=== PATIENT | female | born 1955 | race Caucasian/White ===

== ENCOUNTER → 2016-05-12 | Outpatient (CLI) | payer BC ==
--- NOTE | 2016-05-16 07:10 | MM ---
Reason for exam: screening (asymptomatic). Last mammogram was performed 2 years ago. History: Patient is postmenopausal. Family history of breast cancer in maternal cousin and breast cancer in mother at age 60. Benign left US cyst aspiration of the left breast, August 15, 2010. Benign excisional biopsy of the left breast, February 15, 2005. Benign ultrasound-guided cyst aspiration of the right breast, April 20, 1999. Cyst aspiration of the right breast. Physical Findings: A clinical breast exam by your physician is recommended on an annual basis and results should be correlated with mammographic findings. MG 3D Screening Mammo W/Cad Bilateral CC and MLO view(s) were taken. Prior study comparison: May 01, 2014, bilateral MG screening mammo w CAD. April 08, 2013, bilateral digital screening mammo w/CAD. The breast tissue is heterogeneously dense. This may lower the sensitivity of mammography. No significant changes when compared with prior studies. ASSESSMENT: Benign, BI-RAD 2 RECOMMENDATION: Routine screening mammogram of both breasts in 1 year.
== END | disposition home or self-care (01) ==
LOC: RADMAMWWP 14:19
PROVIDERS: ATTEND Family Medicine
DX: Z12.31 Encounter for screening mammogram for malignant neoplasm of breast (principal)
CPT/HCPCS: 77063; G0202

== ENCOUNTER → 2016-09-25 | Outpatient (CLI) | payer BC ==
[2016-09-25 11:32] LABS: ALT 63 U/L (9-52); AST 46 U/L (14-36); Alkaline Phosphatase 67 U/L (38-126); Anion Gap 13 mmol/L; Blood Urea Nitrogen 10 mg/dL (7-17); Calcium 9.2 mg/dL (8.4-10.2); Carbon Dioxide 27 mmol/L (22-30); Chloride 105 mmol/L (98-107); Cholesterol 126 mg/dL (<200); Glucose 139 mg/dL (74-99); HDL Cholesterol 40 mg/dL (40-60); Non-African American GFR(MDRD) >60 (>60 ml/min/1.73 sqM); Potassium 4.9 mmol/L (3.5-5.1); Sodium 145 mmol/L (137-145); Total Bilirubin 0.4 mg/dL (0.2-1.3); Total Protein 6.9 g/dL (6.3-8.2); Triglycerides 149 mg/dL (<150)
[2016-09-25 16:03] LABS: Urine Creatinine 143.4 mg/dL
== END | disposition home or self-care (01) ==
LOC: LABWHC1 10:58
PROVIDERS: ATTEND Internal Medicine Endocrinology, Diabetes & Metabolism
DX: E11.65 Type 2 diabetes mellitus with hyperglycemia (principal)
CPT/HCPCS: 36415; 80053; 80061; 82043; 82570

== ENCOUNTER → 2017-04-14 | Outpatient (CLI) | payer BC ==
[2017-04-14 07:58] LABS: ALT 64 U/L (9-52); AST 58 U/L (14-36); Albumin 4.4 g/dL (3.5-5.0); Alkaline Phosphatase 63 U/L (38-126); Anion Gap 12 mmol/L; Blood Urea Nitrogen 13 mg/dL (7-17); Calcium 10.1 mg/dL (8.4-10.2); Carbon Dioxide 28 mmol/L (22-30); Chloride 106 mmol/L (98-107); Cholesterol 153 mg/dL (<200); Glucose 115 mg/dL (74-99); HDL Cholesterol 47 mg/dL (40-60); LDL Cholesterol,Calculated 74 mg/dL (0-99); Potassium 4.9 mmol/L (3.5-5.1); Sodium 146 mmol/L (137-145); Total Bilirubin 0.3 mg/dL (0.2-1.3); Total Protein 7.3 g/dL (6.3-8.2); Triglycerides 159 mg/dL (<150)
[2017-04-14 12:40] LABS: Hemoglobin A1C 8.3 % (4.0-6.0)
== END | disposition home or self-care (01) ==
LOC: LABWHC1 07:12
PROVIDERS: ATTEND Internal Medicine Endocrinology, Diabetes & Metabolism
DX: E11.65 Type 2 diabetes mellitus with hyperglycemia (principal); E78.5 Hyperlipidemia, unspecified
CPT/HCPCS: 36415; 80053; 80061; 82043; 82570; 83036; 84443

== ENCOUNTER → 2017-10-09 | Outpatient (CLI) | payer BC ==
--- NOTE | 2017-10-09 08:22 | US ---
EXAMINATION TYPE: US abdomen complete DATE OF EXAM: 10/09/2017 COMPARISON: NONE CLINICAL HISTORY: R74.8 abnormal serum enzymes. Abnormal labs. No pain. EXAM MEASUREMENTS: Liver Length: 20.2 cm Gallbladder Wall: 0.2 cm CBD: 0.5 cm CHD: 0.6 cm Spleen: 12.0 cm Right Kidney: 11.8 x 5.6 x 5.4 cm Left Kidney: 10.6 x 4.6 x 4.7 cm Pancreas: Appears heterogenous. Main pancreatic duct= 1.1 mm. Liver: Increased attenuation, decreased visualization of vessels suggestive of fatty infiltrate. Fo allison sparing seen. Appears enlarged Gallbladder: wnl Evidence for sonographic Schofield's sign: neg CBD: wnl CHD: wnl Spleen: wnl Right Kidney: Cystic appearing lesion seen in renal sinus= 3.3 x 3.0 x 3.6 cm Left Kidney: wnl Upper IVC: wnl Abd Aorta: Portions not visualized due to overlying bowel gas The visualized liver is heterogeneously hyperechoic. No worrisome intrahepatic ductal dilatation is seen. Evaluation for focal masses is suboptimal due to the heterogeneity. The intrahepatic portion of the IVC and visualized abdominal aorta are within normal limits. There is no evidence of cholelithi asis. Common bile duct is unremarkable. The visualized portions of the pancreas are heterogeneous w ith poor definition from adjacent liver. Portions are obscured by overlying bowel gas. The spleen is unremarkable. Kidneys are symmetric and free of hydronephrosis. There is 3.3 x 3.6 cm thin-walled s imple appearing cyst centrally in the right kidney is slightly lobulated contour. IMPRESSION: Heterogeneous hyperechoic appearance of liver likely reflect product of diffuse fatty inf iltration, underlying hepatocellular disease is not excluded. Imaging guided random biopsy for tissue analysis can be performed if desired.
== END | disposition home or self-care (01) ==
LOC: RADUSWWP 06:46
PROVIDERS: ATTEND Family Medicine
DX: R74.8 Abnormal levels of other serum enzymes (principal)
CPT/HCPCS: 76700

== ENCOUNTER → 2017-10-29 | Outpatient (CLI) | payer BC ==
--- NOTE | 2017-10-31 12:02 | MM ---
Reason for exam: screening (asymptomatic). Last mammogram was performed 1 year and 6 months ago. History: Patient is postmenopausal. Family history of breast cancer in maternal cousin and breast cancer in mother at age 60. Benign left US cyst aspiration of the left breast, August 15, 2010. Benign excisional biopsy of the left breast, February 15, 2005. Benign ultrasound-guided cyst aspiration of the right breast, April 20, 1999. Cyst aspiration of the right breast. Physical Findings: A clinical breast exam by your physician is recommended on an annual basis and results should be correlated with mammographic findings. MG 3D Screening Mammo W/Cad Bilateral CC and MLO view(s) were taken. Prior study comparison: May 12, 2016, bilateral MG 3d screening mammo w/cad. May 01, 2014, bilateral MG screening mammo w CAD. The breast tissue is heterogeneously dense. This may lower the sensitivity of mammography. Diffuse round and punctate calcifications redemonstrated. No significant changes when compared with prior studies. ASSESSMENT: Benign, BI-RAD 2 RECOMMENDATION: Routine screening mammogram of both breasts in 1 year.
== END | disposition home or self-care (01) ==
LOC: RADMAMWWP 09:11
PROVIDERS: ATTEND Family Medicine
DX: Z12.31 Encounter for screening mammogram for malignant neoplasm of breast (principal)
CPT/HCPCS: 77063; 77067

== ENCOUNTER → 2018-02-25 | Outpatient (CLI) | payer SELFPAY ==
[2018-02-25 16:43] LABS: ALT 63 U/L (8-44); AST 66 U/L (13-35); Albumin/Globulin Ratio 2.05 (1.20-2.10); Alkaline Phosphatase 84 U/L (41-126); Calcium 9.7 mg/dL (8.7-10.3); Carbon Dioxide 28.1 mmol/L (21.6-31.8); Chloride 105 mmol/L (96-109); Cholesterol 204 mg/dL (0-200); Globulin 2.2 g/dL (2.1-3.7); Glucose 147 mg/dL (70-110); Potassium 4.6 mmol/L (3.5-5.5); Sodium 142 mmol/L (135-145); Total Bilirubin 0.3 mg/dL (0.2-1.2); Total Protein 6.7 g/dL (6.2-8.2)
[2018-02-25 17:13] LABS: Hemoglobin A1C 7.7 % (4.0-6.0)
== END | disposition home or self-care (01) ==
LOC: LABWHC1 10:43
PROVIDERS: ATTEND Internal Medicine Endocrinology, Diabetes & Metabolism
DX: E11.65 Type 2 diabetes mellitus with hyperglycemia (principal)
CPT/HCPCS: 36415; 80053; 80061; 82043; 82570; 83036; 83721

== ENCOUNTER → 2018-06-13 | Outpatient (CLI) | payer BC ==
[2018-06-13 18:03] LABS: Albumin 4.5 g/dL (3.80-4.90); Albumin/Globulin Ratio 2.14 (1.60-3.17); Anion Gap 11.3 mmol/L (4.00-12.00); Calcium 9.2 mg/dL (8.7-10.3); Carbon Dioxide 23.7 mmol/L (21.6-31.8); Globulin 2.1 g/dL (1.6-3.3); Potassium 4.4 mmol/L (3.5-5.5); Total Bilirubin 0.5 mg/dL (0.3-1.2); Total Protein 6.6 g/dL (6.2-8.2)
[2018-06-13 20:21] LABS: Hemoglobin A1C 9.5 % (4.0-6.0)
== END | disposition home or self-care (01) ==
LOC: LABWHC1 10:58
PROVIDERS: ATTEND Internal Medicine Endocrinology, Diabetes & Metabolism
DX: E11.65 Type 2 diabetes mellitus with hyperglycemia (principal)
CPT/HCPCS: 36415; 80053; 80061; 82043; 82570; 83036; 84443

== ENCOUNTER → 2018-12-31 | Outpatient (CLI) | payer BC ==
--- NOTE | 2018-12-31 18:09 | BD ---
EXAMINATION TYPE: Axial Bone Density DATE OF EXAM: 12/31/2018 COMPARISON: NONE CLINICAL HISTORY: Height: 63 IN Weight: 197 LBS RISK FACTORS HISTORY OF: Active: YES Diet low in dairy products/other sources of calcium: YES Postmenopausal woman: AGE 55 MEDICATIONS: Thyroid Medications: YES Which medication: Synthroid How Lon+ YEARS Additional Medications: MULTI VIT, METOPROLOL, METFORMIN, SYNTHROID, ENALAPRIL, EZETIMIBE, GLIPIZIDE, TRULICITY PEN, PIOGLITAZONE,ATORVASTATIN,FISH OIL, BABY ASPIRIN, MAGNESIUM EXAM MEASUREMENTS: Bone mineral densitometry was performed using the [employer]dir System. Bone mineral density as measured about the Lumbar spine is: ----- L1-L4(G/cm2): 1.384 T Score Values are as follows: ----- L2: 1.5 ----- L3: 2.6 ----- L4: 1.6 ----- L1-L4: 1.7 Bone mineral density BASELINE Bone mineral density about the R hip (g/cm2): 0.999 Bone mineral density about the L hip (g/cm2): 1.032 T Score values are as follows: -----R Neck: -0.3 -----L Neck: 0.0 -----R Total: 1.1 -----L Total: 1.0 Bone mineral density BASELINE IMPRESSION: Normal (Values between +1 and -1 indicate normal bone mass). Consider repeating this study in 5 year s or sooner if there is some new clinical indication. NOTE: T-SCORE=SD OF THE YOUNG ADULT MEAN.
--- NOTE | 2019-01-01 11:46 | MM ---
Reason for exam: screening (asymptomatic). Last mammogram was performed 1 year and 2 months ago. History: Patient is postmenopausal. Family history of breast cancer in maternal cousin and breast cancer in mother at age 60. Benign left US cyst aspiration of the left breast, August 15, 2010. Benign excisional biopsy of the left breast, February 15, 2005. Benign ultrasound- guided cyst aspiration of the right breast, April 20, 1999. Cyst aspiration of the right breast. Physical Findings: A clinical breast exam by your physician is recommended on an annual basis and results should be correlated with mammographic findings. MG 3D Screening Mammo W/Cad Bilateral CC and MLO view(s) were taken. Prior study comparison: October 29, 2017, bilateral MG 3d screening mammo w/cad. May 12, 2016, bilateral MG 3d screening mammo w/cad. The breast tissue is heterogeneously dense. This may lower the sensitivity of mammography. There are benign appearing round calcifications bilaterally 6cm from nipple. Asymmetric breast tissue right medial stable from 2017 mammogram. Focal asymmetry 14mm middle depth upper aspect left MLO 45/74, slight outer aspect CC 42/78. ASSESSMENT: Incomplete: need additional imaging evaluation, BI-RAD 0 RECOMMENDATION: Special view mammogram of the left breast. If lesion persists on supplemental views, image directed ultrasound is recommended. [facility] will attempt to contact patient to return for supplemental views and ultrasound if indicated. MARILIN
== END | disposition home or self-care (01) ==
LOC: RADMAMWWP 07:49
PROVIDERS: ATTEND Family Medicine
DX: Z12.31 Encounter for screening mammogram for malignant neoplasm of breast (principal); Z78.0 Asymptomatic menopausal state
CPT/HCPCS: 77063; 77067; 77080

== ENCOUNTER → 2019-01-09 | Outpatient (CLI) | payer BC ==
--- NOTE | 2019-01-10 13:27 | MM ---
Reason for exam: additional evaluation requested from abnormal screening. Last mammogram was performed less than 1 month ago. History: Patient is postmenopausal. Family history of breast cancer in maternal cousin and breast cancer in mother at age 60. Benign left US cyst aspiration of the left breast, August 15, 2010. Benign excisional biopsy of the left breast, February 15, 2005. Benign ultrasound-guided cyst aspiration of the right breast, April 20, 1999. Cyst aspiration of the right breast. Physical Findings: Nurse Summary: 1cm nodule in the left breast at 10 o'clock (nurse mj). MG 3D Work Up W/Cad LT Spot compression CC, spot compression MLO, and LM view(s) were taken of the left breast. Prior study comparison: October 29, 2017, bilateral MG 3d screening mammo w/cad. May 12, 2016, bilateral MG 3d screening mammo w/cad. The breast tissue is heterogeneously dense. This may lower the sensitivity of mammography. No distinct lesion persits. These results were verbally communicated with the patient and result sheet given to the patient on 01/09/19. ASSESSMENT: Incomplete: need additional imaging evaluation, BI-RAD 0 RECOMMENDATION: Ultrasound of the left breast.
--- NOTE | 2019-01-10 13:43 | USB ---
Reason for exam: additional evaluation requested from abnormal screening. History: Patient is postmenopausal. Family history of breast cancer in maternal cousin and breast cancer in mother at age 60. Benign left US cyst aspiration of the left breast, August 15, 2010. Benign excisional biopsy of the left breast, February 15, 2005. Benign ultrasound-guided cyst aspiration of the right breast, April 20, 1999. Cyst aspiration of the right breast. US Breast Workup Limited LT Left limited breast ultrasound including focal area of concern, retroareolar and axilla demonstrates a 0.6 x 0.2 x 0.5cm lesion too small to characterize at 10 o'clock and a 0.3 x 0.2 x 0.4cm lesion too small to characterize at 10 o'clock. Overall fibrocystic change. These results were verbally communicated with the patient and result sheet given to the patient on 01/09/19. ASSESSMENT: Probably benign, BI-RAD 3 RECOMMENDATION: Follow-up diagnostic mammogram and ultrasound of the left breast in 6 months.
== END | disposition home or self-care (01) ==
LOC: RADMAMWWP 14:54
PROVIDERS: ATTEND Family Medicine
DX: R92.8 Other abnormal and inconclusive findings on diagnostic imaging of breast (principal)
CPT/HCPCS: 77061; 77065

== ENCOUNTER → 2019-01-15 | Outpatient (CLI) | payer BC ==
[2019-01-15 16:20] LABS: African American GFR (CKD) 90.3 (60.0-200.0); Albumin 4.4 g/dL (3.80-4.90); Albumin/Globulin Ratio 2.44 (1.60-3.17); Anion Gap 7.8 mmol/L (4.00-12.00); BUN/Creat Ratio 17.5 Ratio (12.00-20.00); Calcium 9.7 mg/dL (8.7-10.3); Carbon Dioxide 26.2 mmol/L (21.6-31.8); Chol/HDL Ratio 2.75; Globulin 1.8 g/dL (1.6-3.3); LDL Cholesterol,Calculated 36.4 mg/dL (0.0-131.0); Potassium 4.8 mmol/L (3.5-5.5); Total Bilirubin 0.4 mg/dL (0.3-1.2); Total Protein 6.2 g/dL (6.2-8.2); VLDL Calculation 26.6 mg/dL (5.00-40.00)
[2019-01-15 17:42] LABS: Hemoglobin A1C 6.4 % (4.0-6.0)
== END | disposition home or self-care (01) ==
LOC: LABWHC1 09:22
PROVIDERS: ATTEND Internal Medicine Endocrinology, Diabetes & Metabolism
DX: E11.65 Type 2 diabetes mellitus with hyperglycemia (principal)
CPT/HCPCS: 36415; 80053; 80061; 82043; 82570; 83036; 84443

== ENCOUNTER → 2019-04-29 | Outpatient (CLI) | payer BC ==
--- NOTE | 2019-04-29 10:45 | USB ---
Reason for exam: clinical finding. History: Patient is postmenopausal. Family history of breast cancer in maternal cousin and breast cancer in mother at age 60. Benign left US cyst aspiration of the left breast, August 15, 2010. Benign excisional biopsy of the left breast, February 15, 2005. Benign ultrasound-guided cyst aspiration of the right breast, April 20, 1999. Cyst aspiration of the right breast. Physical Findings: Nurse Summary: 1cm palpable lump left breast 10 o'clock (nurse mj). US Breast Limited LT Left limited breast ultrasound including focal area of concern, retroareolar and axilla demonstrates a 0.3 x 0.4 x 0.3cm oval, mixed, hypoechoic lesion at 9 o'clock well defined posterior wall, likely complicated cyst, a 0.5 x 0.3 x 0.3cm oval, cystic lesion at 10 o'clock prior 0.4 x 0.3 x 0.2cm, appears cystic on today's exam, a duct at 10 o'clock, a 0.4 x 0.4cm ova, complicated cystic lesion at 11 o'clock and adjacent 2mm cyst and a 2.1 x 2.8 x 1.6cm oval node at the axilla. These results were verbally communicated with the patient and result sheet given to the patient on 04/29/19. ASSESSMENT: Probably benign, BI-RAD 3 RECOMMENDATION: Ultrasound of the left breast in 3 months. (patient is due for a 6 month follow up ultrasound, 3 months from now)
== END | disposition home or self-care (01) ==
LOC: RADUSWWP 09:32
PROVIDERS: ATTEND Family Medicine
DX: R92.8 Other abnormal and inconclusive findings on diagnostic imaging of breast (principal)

== ENCOUNTER → 2019-09-12 | Outpatient (CLI) | payer MEDICARE ==
[2019-09-12 18:59] LABS: African American GFR (CKD) 89.7 (60.0-200.0); Albumin 4.6 g/dL (3.80-4.90); Albumin/Globulin Ratio 2.09 (1.60-3.17); Anion Gap 8.6 mmol/L (4.00-12.00); BUN/Creat Ratio 17.5 Ratio (12.00-20.00); Calcium 9.9 mg/dL (8.7-10.3); Carbon Dioxide 28.4 mmol/L (21.6-31.8); Chol/HDL Ratio 2.42; Globulin 2.2 g/dL (1.6-3.3); LDL Cholesterol,Calculated 29.6 mg/dL (0.0-131.0); Non-African American GFR(CKD) 77.4 (60.0-200.0); Total Bilirubin 0.6 mg/dL (0.2-1.2); Total Protein 6.8 g/dL (6.2-8.2); VLDL Calculation 24.4 mg/dL (5.00-40.00)
[2019-09-12 19:53] LABS: Hemoglobin A1C 6.9 % (4.0-6.0)
== END | disposition home or self-care (01) ==
LOC: LABWHC1 10:39
PROVIDERS: ATTEND Internal Medicine Endocrinology, Diabetes & Metabolism
DX: E11.65 Type 2 diabetes mellitus with hyperglycemia (principal)
CPT/HCPCS: 36415; 80053; 80061; 82043; 82570; 83036; 84443

== ENCOUNTER → 2019-10-01 | Outpatient (CLI) | payer MEDICARE ==
--- NOTE | 2019-10-01 11:49 | MM ---
Reason for exam: follow-up at short interval from prior study. Last mammogram was performed 9 months ago. History: Patient is postmenopausal. Family history of breast cancer in maternal cousin and breast cancer in mother at age 60. Benign left US cyst aspiration of the left breast, August 15, 2010. Benign excisional biopsy of the left breast, February 15, 2005. Benign ultrasound-guided cyst aspiration of the right breast, April 20, 1999. Cyst aspiration of the right breast. Physical Findings: Nurse did not find any significant physical abnormalities on exam. MG 3D Diag Mammo W/Cad RICHARD Bilateral CC and MLO view(s) were taken. XCCL view(s) were taken of the right breast. Prior study comparison: January 09, 2019, left breast MG 3d work up w/cad LT. December 31, 2018, bilateral MG 3d screening mammo w/cad. The breast tissue is heterogeneously dense. This may lower the sensitivity of mammography. Stable benign calcifications. Focal asymmetry upper outer left breast 7.3cm from nipple. These results were verbally communicated with the patient and result sheet given to the patient on 10/01/19. ASSESSMENT: Incomplete: need additional imaging evaluation, BI-RAD 0 RECOMMENDATION: Ultrasound of the left breast. Manage patient on a clinical basis.
--- NOTE | 2019-10-01 11:52 | USB ---
Reason for exam: additional evaluation requested from abnormal screening. History: Patient is postmenopausal. Family history of breast cancer in maternal cousin and breast cancer in mother at age 60. Benign left US cyst aspiration of the left breast, August 15, 2010. Benign excisional biopsy of the left breast, February 15, 2005. Benign ultrasound-guided cyst aspiration of the right breast, April 20, 1999. Cyst aspiration of the right breast. US Breast LT Left complete breast ultrasound includes all four quadrants, the retroareolar region and axilla. Finding demonstrates a 4 x 3 x 3mm oval, cystic lesion at 12 o'clock, a 5 x 3 x 5mm cystic cluster at 2 o'clock, a 11 x 4 x 6mm solid, hypoechoic lesion at 4 o'clock for which a biopsy is recommended, a duct with debris at 5 o'clock, a 3 x 4 x 4mm cystic cluster at 6 o'clock and a 19 x 7 x 13mm irregular, mixed, hypoechoic lesion at 7 o'clock for which a biopsy is recommended. These results were verbally communicated with the patient and result sheet given to the patient on 10/01/19. ASSESSMENT: Suspicious, BI-RAD 4 RECOMMENDATION: Ultrasound core biopsy of the left breast. (x 2) Called Dr. Calderon's office with mammographic findings and has scheduled an appointment for the patient for 10/14/19 at 10:[address] Quinonez. PRELIMINARY REPORT CALLED AND FAXED TO DR. QUINONEZ ON 10/01/19.
== END | disposition home or self-care (01) ==
LOC: RADMAMWWP 08:13
PROVIDERS: ATTEND Family Medicine
DX: R92.8 Other abnormal and inconclusive findings on diagnostic imaging of breast (principal)
CPT/HCPCS: 77066; 76641; G0279; 77062

== ENCOUNTER → 2019-10-23 | Day surgery (SDC) | payer MEDICARE ==
[2019-10-23 12:10] VITALS: RESP 18; TEMP 98.5
[2019-10-23 13:58] VITALS: BP 123/73; PULSE 82
--- NOTE | 2019-10-23 14:14 | USB ---
EXAMINATION TYPE: US biopsy breast VAD LT DATE OF EXAM: 10/23/2019 CLINICAL HISTORY: R92.8 abn mammo. TECHNIQUE: Ultrasound guided core biopsy of left breast. COMPARISON: 10/01/2019 FINDINGS: The procedure of ultrasound guided core biopsy was explained to the patient. Benefits, alt ernatives, and risks were discussed. An informed consent was then obtained. The patient was placed in supine positioning for imaging and for the procedure. The overlying skin w as prepped and draped in usual sterile fashion. Lidocaine buffered with bicarbonate was used as anes thetic into the skin and subcutaneous tissue up to area of concern in the 7:00 position of the left b reast. A ismael was made with surgical scalpel. Under ultrasound guidance, a 12-gauge vacuum assisted biopsy gun device was used to obtain [address]. Following this, a biopsy clip was left in lesion. The 4:00 lesion could not be duplicated on today's exam and therefore cannot be biopsied. The patient tolerated the procedure well without any immediate complication. The patient was kept in the radiology department for short stay after the procedure and then discharged home in stable condi tion. IMPRESSION: Successful, uncomplicated ultrasound guided core biopsy of area of concern in the left br east, full pathology results to follow. See above.
--- NOTE | 2019-10-23 14:17 | MM ---
Reason for exam: additional evaluation requested from abnormal screening. Last mammogram was performed 1 month ago. History: Patient is postmenopausal. Family history of breast cancer in maternal cousin and breast cancer in mother at age 60. Benign left US cyst aspiration of the left breast, August 15, 2010. Benign excisional biopsy of the left breast, February 15, 2005. Benign ultrasound-guided cyst aspiration of the right breast, April 20, 1999. Cyst aspiration of the right breast. MG Diagnostic Mammo LT Wo CAD CC and LM view(s) were taken of the left breast. Prior study comparison: October 01, 2019, bilateral MG 3d diag mammo w/cad RICHARD. January 09, 2019, left breast MG 3d work up w/cad LT. ASSESSMENT: Post procedure mammogram for marker placement RECOMMENDATION: Ultrasound of the left breast in 6 months. PENDING PATHOLOGY RESULTS.
== END ==
LOC: RADUSWWP 11:51
PROVIDERS: ATTEND Surgery
DX: N60.12 Diffuse cystic mastopathy of left breast (principal); N62 Hypertrophy of breast; Z78.0 Asymptomatic menopausal state; Z80.3 Family history of malignant neoplasm of breast
CPT/HCPCS: 88305; 88342; 88341; 77065; 19083; A4648

== ENCOUNTER → 2020-04-20 | Outpatient (CLI) | payer MEDICARE ==
[2020-04-20 12:18] LABS: African American GFR (CKD) 89.7 (60.0-200.0); Albumin 4.5 g/dL (3.80-4.90); Albumin/Globulin Ratio 2.25 (1.60-3.17); Anion Gap 11.1 mmol/L (4.00-12.00); Calcium 9.5 mg/dL (8.7-10.3); Carbon Dioxide 27.9 mmol/L (21.6-31.8); Chol/HDL Ratio 2.73; LDL Cholesterol,Calculated 26.2 mg/dL (0.0-131.0); Non-African American GFR(CKD) 77.4 (60.0-200.0); Potassium 4.8 mmol/L (3.5-5.5); Total Bilirubin 0.6 mg/dL (0.2-1.2); Total Protein 6.5 g/dL (6.2-8.2); VLDL Calculation 30.8 mg/dL (5.00-40.00)
[2020-04-20 12:50] LABS: Urine Creatinine 180.2 mg/dL
[2020-04-20 14:20] LABS: Hemoglobin A1C 7.1 % (4.0-6.0)
== END | disposition home or self-care (01) ==
LOC: LABWHC1 07:15
PROVIDERS: ATTEND Internal Medicine Endocrinology, Diabetes & Metabolism
DX: E11.65 Type 2 diabetes mellitus with hyperglycemia (principal)
CPT/HCPCS: 36415; 80053; 80061; 82043; 82570; 83036; 84443

== ENCOUNTER → 2020-05-25 | Outpatient (CLI) | payer MEDICARE ==
--- NOTE | 2020-05-25 12:14 | MM ---
Reason for exam: additional evaluation requested from prior study. Last mammogram was performed 7 months ago. History: Patient is postmenopausal. Family history of breast cancer in maternal cousin and breast cancer in mother at age 60. Benign US biopsy breast VAD LT of the left breast, October 23, 2019. Benign left US cyst aspiration of the left breast, August 15, 2010. Benign excisional biopsy of the left breast, February 15, 2005. Benign ultrasound-guided cyst aspiration of the right breast, April 20, 1999. Cyst aspiration of the right breast. Physical Findings: Nurse did not find any significant physical abnormalities on exam. MG 3D Diag Mammo W/Cad RICHARD Bilateral CC and MLO view(s) were taken. Prior study comparison: October 01, 2019, bilateral MG 3d diag mammo w/cad RICHARD. December 31, 2018, bilateral MG 3d screening mammo w/cad. October 29, 2017, bilateral MG 3d screening mammo w/cad. The breast tissue is heterogeneously dense. This may lower the sensitivity of mammography. There are benign appearing round calcifications bilaterally. Previous mammotome biopsy in the left breast. There is no discrete abnormality. These results were verbally communicated with the patient and result sheet given to the patient on 05/25/20. ASSESSMENT: Benign, BI-RAD 2 RECOMMENDATION: Routine screening mammogram of both breasts in 1 year.
--- NOTE | 2020-05-25 12:17 | USB ---
Reason for exam: additional evaluation requested from prior study. History: Patient is postmenopausal. Family history of breast cancer in maternal cousin and breast cancer in mother at age 60. Benign US biopsy breast VAD LT of the left breast, October 23, 2019. Benign left US cyst aspiration of the left breast, August 15, 2010. Benign excisional biopsy of the left breast, February 15, 2005. Benign ultrasound-guided cyst aspiration of the right breast, April 20, 1999. Cyst aspiration of the right breast. US Breast Limited LT Left limited breast ultrasound including focal area of concern, retroareolar and axilla demonstrates a 1.1 x 1.8 x 1.6cm irregular, hypoechoic lesion at 7 o'clock, clip seen, stable, biopsied 10/23/19, a 0.6 x 1.1 x 0.5cm irregular, questionably cystic cluster at 9 o'clock, stable 04/29/19 ultrasound and a 1.7 x 1.6 x 1.1cm lymph node at the axilla, stable, slightly enlarged lymph node. Left breast scanned 6-9 o'clock. These results were verbally communicated with the patient and result sheet given to the patient on 05/25/20. ASSESSMENT: Benign, BI-RAD 2 RECOMMENDATION: Routine screening mammogram of both breasts in 1 year.
== END | disposition home or self-care (01) ==
LOC: RADMAMWWP 09:59
PROVIDERS: ATTEND Family Medicine
DX: R92.8 Other abnormal and inconclusive findings on diagnostic imaging of breast (principal); Z80.3 Family history of malignant neoplasm of breast
CPT/HCPCS: 77066; 76642; G0279; 77062

== ENCOUNTER → 2020-11-13 | Outpatient (CLI) | payer MEDICARE ==
[2020-11-13 10:42] LABS: HCT 36.5 % (34.0-46.0); HGB 11.8 gm/dL (11.4-16.0); Hypochromasia Slight; MCH 30.5 pg (25.0-35.0); MCHC 32.4 g/dL (31.0-37.0); Mean Platelet Volume 7.8; Platelet Count 219 k/uL (150-450); RBC 3.89 m/uL (3.80-5.40); RDW 14.6 % (11.5-15.5); WBC 7.8 k/uL (3.8-10.6)
[2020-11-13 10:51] LABS: African American GFR (CKD) >90 (>60 ml/min/1.73 sqM); Anion Gap 11 mmol/L; Blood Urea Nitrogen 17 mg/dL (7-17); Carbon Dioxide 26 mmol/L (22-30); Chloride 104 mmol/L (98-107); Non-African American GFR(CKD) 83 (>60 ml/min/1.73 sqM); Potassium 4.7 mmol/L (3.5-5.1); Sodium 141 mmol/L (137-145)
== END | disposition home or self-care (01) ==
LOC: LABPAT 09:52
PROVIDERS: ATTEND Internal Medicine Interventional Cardiology
DX: Z01.812 Encounter for preprocedural laboratory examination (principal); R94.39 Abnormal result of other cardiovascular function study
CPT/HCPCS: 36415; 80051; 82565; 84520; 85027

== ENCOUNTER → 2020-11-23 | Day surgery (SDC) | payer MEDICARE ==
[2020-11-17 15:57] VITALS: BMI 36.0
[~2020-11-23] MED LIST: ALPRAZolam 0.25 MG TAB PO PRN; ALPRAZolam 0.5 MG TAB PO PRN; ASPIRIN 325 MG TAB PO STA; HEPARIN SODIUM 1,000 UN/ML (10ML VL) IV ONE; HEPARIN SODIUM 1,000 UN/ML (10ML VL) ONE; HEPARIN SODIUM,PORCINE 10,000 UNIT in SODIUM CHLORIDE 0.9% 1,000 ML IRRIGATION PRN; HEPARIN SODIUM,PORCINE 2,500 UNIT in SODIUM CHLORIDE 0.9% 250 ML IRRIGATION PRN; IOPAMIDOL-370 100ML BTL INJ ONE; LIDOCAINE 1% INJ 10MG/ML (20 ML MDV) ONE; LIDOCAINE 1% INJ 10MG/ML (20 ML MDV) SQ ONE; NITROGLYCERIN SL TABS 0.4 MG TAB SUBLINGUAL PRN; SODIUM CHLORIDE 0.9% 1,000 ML IV SCH; SODIUM CHLORIDE 0.9% 1,000 ML in EMPTY BAG 1 BAG IV ONE; VERAPAMIL 2.5 MG/ML 2 ML AMP ONE
[2020-11-23 09:45] LABS: Glucose,Whole Blood 164 mg/dL (75-99)
[2020-11-23 09:55] VITALS: RESP 16; TEMP 97.8
[2020-11-23] MEDS: MIDAZOLAM 2 MG/2 ML VIAL IV ONE ×2 (10:38→10:49)
[2020-11-23] MEDS: VERAPAMIL SYRINGE (5 MG/10 ML) INTRAARTER ONE ×2 (10:42→10:58)
--- NOTE | 2020-11-23 11:29 | CC ---
CARDIAC CATHETERIZATION REPORT DATE OF SERVICE: 11/23/2020 PROCEDURE: Left heart catheterization and coronary angiography. PERFORMED BY: Dr. Chey Membreno. Moderate conscious sedation time was 20 minutes. Patient was administered Versed. Oxygen saturation, hemodynamics and EKG were monitored closely. CLINICAL INFORMATION: Mrs. Denice Gutiérrez is a 65-year-old lady with a known history of diabetes, hypertension, hyperlipidemia, who has been having nondescript chest tightness and an abnormal stress test with evidence of ischemia in the anterior wall. She was advised cardiac catheterization after due discussion regarding risks, benefits, and options. PROCEDURE NOTE: Under local anesthesia and strict aseptic precautions, a 6-Sinhala introducer was placed in the right radial artery. Using a 3.5 left and a 4.0 right Abner catheters, I performed coronary angiography and the same right catheter was used to check LV pressure but LV gram was not performed. The sheath was taken out and TR band applied as per protocol. The saturation of the fingers of the right hand of about 94%. There were no complications. CARDIAC CATHETERIZATION FINDINGS: The left foot ventricular end-diastolic pressure was 12-13 mmHg without any gradient across aortic valve. CORONARY ANGIOGRAPHY FINDINGS: RIGHT CORONARY ARTERY: Dominant vessel, tortuous. No significant disease distally. Bifurcates into a large PDA and PLV, both of which supply a fair amount of myocardium. No significant disease in the dominant RCA system. There is mild calcification noted. LEFT MAIN CORONARY ARTERY: Short, patent, disease-free vessel that bifurcates into LAD and circumflex. LEFT ANTERIOR DESCENDING CORONARY ARTERY: Good caliber vessel extends along the anterior wall, gives off a large diagonal by several small septal branches, runs all the way to the apex, has minor irregularities but no significant disease. LEFT POSTERIOR CIRCUMFLEX CORONARY ARTERY: Nondominant vessel, gives off a single obtuse marginal that subdivides into 3 branches, has minor irregularities. No significant disease. LEFT VENTRICULOGRAM: Was not performed. FINAL IMPRESSION: This patient has a right dominant system. Normal filling pressures. No gradient. No significant obstructive CAD. Stress test was probably a false positive one. RECOMMENDATIONS: Findings were discussed with the patient and family. Continued medical therapy with risk factor modification advised. Patient will be discharged later on today and I will see her in the office in about a week. MMODL / IJN: [id number] /
[2020-11-23 17:37] VITALS: BP 125/61; PULSE 76
== END ==
LOC: CATHCVL 09:18
PROVIDERS: ATTEND Internal Medicine Interventional Cardiology
DX: R07.89 Other chest pain (principal); E11.9 Type 2 diabetes mellitus without complications; E78.5 Hyperlipidemia, unspecified; I10 Essential (primary) hypertension
CPT/HCPCS: 93458; C1894; J2250; J2001; J1644; Q9967

== ENCOUNTER → 2020-12-13 | Outpatient (CLI) | payer MEDICARE ==
[2020-12-13 11:37] LABS: Urine Creatinine 130.3 mg/dL
[2020-12-13 12:20] LABS: African American GFR (CKD) 77.2 (60.0-200.0); Albumin 4.4 g/dL (3.80-4.90); Albumin/Globulin Ratio 1.76 (1.60-3.17); Anion Gap 11.2 mmol/L (4.00-12.00); BUN/Creat Ratio 17.78 Ratio (12.00-20.00); Calcium 9.6 mg/dL (8.7-10.3); Carbon Dioxide 24.8 mmol/L (21.6-31.8); Chol/HDL Ratio 3.03; Globulin 2.5 g/dL (1.6-3.3); LDL Cholesterol,Calculated 26.2 mg/dL (0.0-131.0); Non-African American GFR(CKD) 66.6 (60.0-200.0); Potassium 4.8 mmol/L (3.5-5.5); Total Bilirubin 0.4 mg/dL (0.2-1.2); Total Protein 6.9 g/dL (6.2-8.2); VLDL Calculation 46.8 mg/dL (5.00-40.00)
[2020-12-13 14:15] LABS: Hemoglobin A1C 7.4 % (4.0-6.0)
== END | disposition home or self-care (01) ==
LOC: LABWHC1 07:10
PROVIDERS: ATTEND Internal Medicine Endocrinology, Diabetes & Metabolism
DX: E11.65 Type 2 diabetes mellitus with hyperglycemia (principal)
CPT/HCPCS: 36415; 80053; 80061; 82043; 82570; 83036; 84443

== ENCOUNTER → 2021-08-02 | Outpatient (CLI) | payer MEDICARE ==
--- NOTE | 2021-08-03 11:40 | MM ---
Reason for exam: screening (asymptomatic). Last mammogram was performed 1 year and 2 months ago. History: Patient is postmenopausal. Family history of breast cancer in maternal cousin at age 42 and breast cancer in mother at age 60. Benign US biopsy breast VAD LT of the left breast, October 23, 2019. Benign left US cyst aspiration of the left breast, August 15, 2010. Benign excisional biopsy of the left breast, February 15, 2005. Benign ultrasound-guided cyst aspiration of the right breast, April 20, 1999. Cyst aspiration of the right breast. Physical Findings: A clinical breast exam by your physician is recommended on an annual basis and results should be correlated with mammographic findings. MG 3D Screening Mammo W/Cad Bilateral CC and MLO view(s) were taken. Prior study comparison: May 25, 2020, bilateral MG 3d diag mammo w/cad RICHARD. October 23, 2019, left breast MG diagnostic mammo LT wo CAD. The breast tissue is extremely dense which could obscure a lesion on mammography. Stable benign calcifications. There is no discrete abnormality. No significant changes when compared with prior studies. ASSESSMENT: Benign, BI-RAD 2 RECOMMENDATION: Routine screening mammogram of both breasts in 1 year.
== END | disposition home or self-care (01) ==
LOC: RADMAMWWP 07:09
PROVIDERS: ATTEND Family Medicine
DX: Z12.31 Encounter for screening mammogram for malignant neoplasm of breast (principal); Z78.0 Asymptomatic menopausal state; Z80.3 Family history of malignant neoplasm of breast
CPT/HCPCS: 77063; 77067

== ENCOUNTER → 2021-08-19 | Outpatient (CLI) | payer MEDICARE ==
[2021-08-19 14:58] LABS: Basophils # (A) 0.03 X 10*3/uL (0.00-0.10); Basophils % (A) 0.5 %; Eosinophils % (A) 1.7 %; HCT 37.9 % (37.2-46.3); HGB 11.2 g/dL (12.0-15.0); Immature Grans, Automated 0.7 %; Lymphocytes # (A) 2.11 X 10*3/uL (0.90-5.00); Lymphocytes % (A) 35.3 %; MCH 26.9 pg (27.0-32.0); MCHC 29.6 g/dL (32.0-37.0); MCV 91.1 fL (80.0-97.0); Mean Platelet Volume 10.9 fL (9.5-12.2); Monocytes # (A) 0.69 X 10*3/uL (0.20-1.00); Monocytes % (A) 11.5 %; NRBC Per 100 WBC 0 /100 WBCS (0.0-0.0); Neutrophils # (A) 3.01 X 10*3/uL (1.80-7.70); Neutrophils % (A) 50.3 %; Platelet Count 212 X 10*3/uL (140-440); RBC 4.16 X 10*6/uL (4.10-5.20); RDW 16.3 % (11.5-14.5); WBC 5.98 X 10*3/uL (4.50-10.00)
[2021-08-19 15:25] LABS: ALT 31 U/L (8-44); AST 49 U/L (13-35); African American GFR (CKD) 104.6 (60.0-200.0); Albumin 4.4 g/dL (3.8-4.9); Albumin/Globulin Ratio 1.69 (1.60-3.17); Alkaline Phosphatase 80 U/L (41-126); BUN/Creat Ratio 14.71 Ratio (12.00-20.00); Blood Urea Nitrogen 10.3 mg/dL (9.0-27.0); Calcium 9.5 mg/dL (8.7-10.3); Carbon Dioxide 25.8 mmol/L (20.0-27.5); Chloride 104 mmol/L (96-109); Chol/HDL Ratio 3.34 Ratio; Globulin 2.6 g/dL (1.6-3.3); Glucose 140 mg/dL (70-110); LDL Cholesterol,Calculated 51.8 mg/dL (0.0-131.0); Non-African American GFR(CKD) 90.3 (60.0-200.0); Potassium 4.8 mmol/L (3.5-5.5); Sodium 141 mmol/L (135-145)
[2021-08-19 18:51] LABS: Appearance,Urine Clear (Clear); Bilirubin,Urine Negative (Negative); Blood,Urine Negative (Negative); Color,Urine Yellow (Yellow); Ketones,Urine Trace mg/dL (Negative); Nitrite,Urine Negative (Negative); Specific Gravity,Urine 1.016 (1.001-1.030); Urobilinogen,Urine 0.2 (0.2,1.0)
[2021-08-19 18:58] LABS: Bacteria,Urine None Seen /HPF (None Seen)
== END | disposition home or self-care (01) ==
LOC: LABWHC1 08:43
PROVIDERS: ATTEND Internal Medicine Endocrinology, Diabetes & Metabolism
DX: E11.65 Type 2 diabetes mellitus with hyperglycemia (principal); I10 Essential (primary) hypertension; E78.5 Hyperlipidemia, unspecified; E03.9 Hypothyroidism, unspecified
CPT/HCPCS: 36415; 80053; 80061; 81001; 82043; 82570; 83036; 84443; 85025

== ENCOUNTER → 2022-04-18 | Outpatient (CLI) | payer MEDICARE ==
[2022-04-20 05:15] LABS: ALT 24 U/L (8-44); AST 33 U/L (13-35); African American GFR (CKD) 93.8 (60.0-200.0); Albumin 4.3 g/dL (3.8-4.9); Albumin/Globulin Ratio 1.82 (1.60-3.17); Alkaline Phosphatase 83 U/L (41-126); BUN/Creat Ratio 18.24 Ratio (12.00-20.00); Blood Urea Nitrogen 13.9 mg/dL (9.0-27.0); Calcium 9.5 mg/dL (8.7-10.3); Carbon Dioxide 19.7 mmol/L (20.0-27.5); Chloride 105 mmol/L (96-109); Chol/HDL Ratio 3.42 Ratio; Globulin 2.3 g/dL (1.6-3.3); Glucose 140 mg/dL (70-110); LDL Cholesterol,Calculated 42.9 mg/dL (0.0-131.0); Non-African American GFR(CKD) 80.9 (60.0-200.0); Potassium 4.2 mmol/L (3.5-5.5); Sodium 141 mmol/L (135-145); Total Protein 6.6 g/dL (6.2-8.2)
== END | disposition home or self-care (01) ==
LOC: LABWHC1 08:15
PROVIDERS: ATTEND Internal Medicine Endocrinology, Diabetes & Metabolism
DX: E11.65 Type 2 diabetes mellitus with hyperglycemia (principal)
CPT/HCPCS: 36415; 80053; 80061; 82043; 82570; 83036; 84443

== ENCOUNTER → 2022-08-08 | Outpatient (CLI) | payer MEDICARE ==
--- NOTE | 2022-08-09 07:54 | MM ---
Reason for Exam: Screening (asymptomatic). Last screening mammogram was performed 12 month(s) ago. Patient History: Menarche at age 13. First Full-Term at age 21. Hysterectomy at age 57. Postmenopausal. 02/15/2005, Benign Excisional Biopsy on the left side. Cyst Aspiration on the Right side. 10/23/2019, Benign Core Biopsy on the left side. 08/15/2010, Benign Cyst Aspiration on the left side. 04/20/1999, Benign Ultrasound-Guided Cyst Aspiration on the right side. Maternal cousin had breast cancer, age 42. Maternal cousin had breast cancer under age 50. Maternal cousin had breast cancer at or over age 50. Mother had breast cancer, age 60. Risk Values: Carmita 5 year model risk: 4.4%. NCI Lifetime model risk: 14.5%. Prior Study Comparison: 05/12/2016 Bilateral Screening Mammogram, [facility]. 10/29/2017 Bilateral Screening Mammogram, [facility]. 12/31/2018 Bilateral Screening Mammogram, [facility]. 01/09/2019 Left Diagnostic Mammogram, [facility]. 10/01/2019 Bilateral Diagnostic Mammogram, [facility]. 10/23/2019 Left Diagnostic Mammogram, [facility]. 05/25/2020 Bilateral Diagnostic Mammogram, [facility]. 08/02/2021 Bilateral Screening Mammogram, [facility]. Tissue Density: The breast tissue is heterogeneously dense. This may lower the sensitivity of mammography. Findings: Analyzed By CAD. There is no suspicious group of microcalcifications or new suspicious mass in either breast. Stable benign-appearing round calcifications bilaterally. Previous mammotome biopsy in the left breast. Overall Assessment: Benign, BI-RAD 2 Management: Screening Mammogram of both breasts in 1 year. A clinical breast exam by your physician is recommended on an annual basis and results should be correlated with mammographic findings. Electronically signed and approved by: Saul Naqvi D.O.
== END | disposition home or self-care (01) ==
LOC: RADMAMWWP 07:49
PROVIDERS: ATTEND Family Medicine
DX: Z12.31 Encounter for screening mammogram for malignant neoplasm of breast (principal); Z78.0 Asymptomatic menopausal state; Z80.3 Family history of malignant neoplasm of breast
CPT/HCPCS: 77063; 77067

== ENCOUNTER → 2023-07-30 | Outpatient (CLI) | payer MEDICARE ==
[2023-07-30 15:17] LABS: ALT 20 U/L (8-44); AST 29 U/L (13-35); Albumin 4.3 g/dL (3.8-4.9); Albumin/Globulin Ratio 1.65 Ratio (1.60-3.17); Alkaline Phosphatase 81 U/L (41-126); BUN/Creat Ratio 22.62 Ratio (12.00-20.00); Blood Urea Nitrogen 18.1 mg/dL (9.0-27.0); Calcium 9.8 mg/dL (8.7-10.3); Carbon Dioxide 23.9 mmol/L (21.6-31.8); Chloride 106 mmol/L (96-109); Chol/HDL Ratio 2.42 Ratio; Globulin 2.6 g/dL (1.6-3.3); Glucose 181 mg/dL (70-110); LDL Cholesterol,Calculated 32.3 mg/dL (0.0-131.0); Potassium 4.4 mmol/L (3.5-5.5); Sodium 142 mmol/L (135-145); Total Bilirubin 0.5 mg/dL (0.3-1.2); Total Protein 6.9 g/dL (6.2-8.2)
== END | disposition home or self-care (01) ==
LOC: LABWHC1 09:10
PROVIDERS: ATTEND Internal Medicine Endocrinology, Diabetes & Metabolism
DX: E11.65 Type 2 diabetes mellitus with hyperglycemia (principal)
CPT/HCPCS: 36415; 80053; 80061; 82043; 82570; 83036; 84443

== ENCOUNTER → 2023-11-27 | Outpatient (CLI) | payer MEDICARE ==
[2023-11-27 19:39] LABS: ALT 20 U/L (8-44); AST 26 U/L (13-35); Albumin 4.6 g/dL (3.8-4.9); Albumin/Globulin Ratio 1.77 Ratio (1.60-3.17); Alkaline Phosphatase 93 U/L (41-126); BUN/Creat Ratio 20.83 Ratio (12.00-20.00); Calcium 9.2 mg/dL (8.7-10.3); Carbon Dioxide 20.5 mmol/L (21.6-31.8); Chloride 105 mmol/L (96-109); Chol/HDL Ratio 3.27 Ratio; Globulin 2.6 g/dL (1.6-3.3); Glucose 193 mg/dL (70-110); LDL Cholesterol,Calculated 45.8 mg/dL (0.0-131.0); Potassium 4.8 mmol/L (3.5-5.5); Sodium 142 mmol/L (135-145); Total Bilirubin 0.4 mg/dL (0.3-1.2); Total Protein 7.2 g/dL (6.2-8.2)
== END | disposition home or self-care (01) ==
LOC: LABWHC1 09:48
PROVIDERS: ATTEND Internal Medicine Endocrinology, Diabetes & Metabolism
DX: E11.65 Type 2 diabetes mellitus with hyperglycemia (principal)
CPT/HCPCS: 36415; 80053; 80061; 82043; 82570; 83036; 84443

== ENCOUNTER → 2023-12-07 | Outpatient (CLI) | payer MEDICARE ==
--- NOTE | 2023-12-09 12:02 | MM ---
Reason for Exam: Screening (asymptomatic). Last mammogram was performed 1 year(s) and 4 month(s) ago. Patient History: Menarche at age 13. First Full-Term at age 21. Hysterectomy at age 57. Postmenopausal. 02/15/2005, Benign Excisional Biopsy on the left side. Cyst Aspiration on the Right side. 10/23/2019, Benign Core Biopsy on the left side. 08/15/2010, Benign Cyst Aspiration on the left side. 04/20/1999, Benign Ultrasound-Guided Cyst Aspiration on the right side. Maternal cousin had breast cancer, age 42. Maternal cousin had breast cancer under age 50. Maternal cousin had breast cancer at or over age 50. Mother had breast cancer, age 60. Risk Values: Carmita 5 year model risk: 3.5%. NCI Lifetime model risk: 10.7%. Prior Study Comparison: 05/25/2020 Bilateral Diagnostic Mammogram, [facility]. 08/02/2021 Bilateral Screening Mammogram, [facility]. 08/08/2022 Bilateral MG 3D screening mammo w/cad, [facility]. Tissue Density: The breasts are heterogeneously dense, which may obscure small masses. Findings: Analyzed By CAD. Left breast biopsy clip. Right breast: There is no suspicious group of microcalcifications or new suspicious mass. Left breast: There is no suspicious group of microcalcifications or new suspicious mass. Benign-appearing calcifications left breast. Overall Assessment: Benign, BI-RAD 2 Management: Screening Mammogram of both breasts in [address] [facility] will attempt to contact patient to return for supplemental views and ultrasound if indicated. Patient should continue monthly self-breast exams. A clinical breast exam by your physician is recommended on an annual basis. This exam should not preclude additional follow-up of suspicious palpable abnormalities. Note on Carmita scores and lifetime risk: 1. A Carmita score greater than 3% is considered moderate risk. If this is the case, consider specialist referral to assess eligibility for a risk reducing agent. 2. If overall lifetime risk for the development of breast cancer is 20% or higher, the patient may qualify for future screening with alternating mammogram and breast MRI. Electronically signed and approved by: Jim Simon DO
== END | disposition home or self-care (01) ==
LOC: RADMAMWWP 08:19
PROVIDERS: ATTEND Family Medicine
DX: Z12.31 Encounter for screening mammogram for malignant neoplasm of breast
CPT/HCPCS: 77063; 77067